=== PATIENT | female | born 1970 | race Caucasian/White ===

== ENCOUNTER → 2017-10-09 | Emergency (ER) | payer OTHER ==
[~2017-10-09] MED LIST: SOD CHLORIDE 0.9% 1,000 ML IV
[2017-10-09] MEDS: FAMOTIDINE 20 MG INJ IV (13:47)
[2017-10-09] MEDS: ONDANSETRON 4 MG INJ IV (13:47)
[2017-10-09] MEDS: morphine 4 MG/ML VIAL IV (13:47)
[2017-10-09 13:50] LABS: ADD MAN DIFF? NO
[2017-10-09 13:56] LABS: WHITE BLOOD COUNT 7.2 10^3/ul (4.8-10.8)
[2017-10-09 13:56] LABS: BASOPHIL # 0.1 10^3/ul (0.0-0.1); BASOPHILS % 0.8 % (0.0-2.0); EOSINOPHILS # 0.2 10^3/ul (0.0-0.5); EOSINOPHILS % 2.8 % (0.0-7.0); HEMATOCRIT 34.2 % (37.0-47.0); LYMPHOCYTES # 3.3 10^3/ul (0.8-2.9); LYMPHOCYTES % 45.7 % (15.0-51.0); MEAN CORPUSCULAR HEMOGLOBIN 26.7 pg (29.0-33.0); MEAN CORPUSCULAR HGB CONC 32.2 g/dl (32.0-37.0); MEAN PLATELET VOLUME 9.7 fl (7.4-10.4); MONOCYTE # 0.4 10^3/ul (0.3-0.9); MONOCYTES % 5.4 % (0.0-11.0); NEUTROPHIL # 3.2 10^3/ul (1.6-7.5); NEUTROPHILS % 44.6 % (39.0-77.0); PLATELET COUNT 354 10^3/UL (140-415); RED BLOOD COUNT 4.12 10^6/ul (4.20-5.40); RED CELL DISTRIBUTION WIDTH 14.1 % (11.5-14.5)
[2017-10-09 13:59] LABS: ADD UMIC YES; UR ASCORBIC ACID NEGATIVE (NEGATIVE); UR BILIRUBIN (Dip) NEGATIVE (NEGATIVE); UR BLOOD (Dip) 2+ mg/dL (NEGATIVE); UR CLARITY SLIGHTLY CLOUDY (CLEAR); UR COLOR YELLOW (YELLOW); UR GLUCOSE (Dip) NEGATIVE (NEGATIVE); UR KETONES (Dip) TRACE mg/dL (NEGATIVE); UR LEUKOCYTE ESTERASE (Dip) 3+ Leu/ul (NEGATIVE); UR MUCUS FEW /HPF (NONE SEEN); UR NITRITE (Dip) NEGATIVE (NEGATIVE); UR RBC 11 /HPF (0-5); UR SPECIFIC GRAVITY (Dip) 1.019 (1.003-1.030); UR SQUAMOUS EPITHELIAL CELL FEW /HPF (FEW); UR TOTAL PROTEIN (Dip) NEGATIVE (NEGATIVE); UR UROBILINOGEN (Dip) NEGATIVE (NEGATIVE); UR WBC 26 /HPF (0-5)
[2017-10-09 14:14] LABS: ALANINE AMINOTRANSFERASE 74 IU/L (13-69); ALBUMIN 4.1 g/dl (3.3-4.9); ALKALINE PHOSPHATASE 94 IU/L (42-121); ANION GAP 16 (8-16); ASPARTATE AMINO TRANSFERASE 108 IU/L (15-46); BLOOD UREA NITROGEN 18 mg/dl (7-20); CALCIUM 9.9 mg/dl (8.4-10.2); CARBON DIOXIDE 26 mmol/L (21-31); CHLORIDE 103 mmol/L (97-110); CREATININE 0.78 mg/dl (0.44-1.00); GLUCOSE 174 mg/dl (70-220); LIPASE 75 U/L (23-300); POTASSIUM 4.1 mmol/L (3.5-5.1); SODIUM 141 mmol/L (135-144); TOTAL PROTEIN 7.8 g/dl (6.1-8.1)
[2017-10-09] MEDS: LIDOCAINE/MYLANTA 40 ML BTL PO (15:53)
[2017-10-09] MEDS: HYDROmorphONE 1 MG/5 ML IV SYRINGE IV (15:53)
[2017-10-09] MEDS: METOCLOPRAMIDE 10 MG INJ IV (16:45)
== END | disposition home or self-care (01) ==
LOC: FTE 12:12
DX: N39.0 Urinary tract infection, site not specified (principal); R51 Headache; E10.9 Type 1 diabetes mellitus without complications; I10 Essential (primary) hypertension; Z79.84 Long term (current) use of oral hypoglycemic drugs
CPT/HCPCS: 36415; 76705; 80053; 81001; 81025; 83690; 85025; 96374; 96375; 99285-25

== ENCOUNTER 2018-01-04 23:48 | Emergency (ER) | payer OTHER | END 2018-01-05 03:33 | disposition home or self-care (01) | LOC: FTE 23:48 | DX: M25.562 Pain in left knee (principal); I10 Essential (primary) hypertension; E10.9 Type 1 diabetes mellitus without complications; Z79.84 Long term (current) use of oral hypoglycemic drugs | CPT/HCPCS: 29505; 73562; 99283-25 ==

== ENCOUNTER 2018-02-04 05:47 | Day surgery (SDC) | payer OTHER ==
[2018-02-04] MEDS ORDERED: MIDAZOLAM 1 MG/ML 2 ML INJ ×2 (07:53)
[2018-02-04] MEDS ORDERED: FENTAnyl 50 MCG/ML VIAL (07:53)
== END 2018-02-04 12:02 | disposition home or self-care (01) ==
LOC: GIL 05:47
DX: R19.4 Change in bowel habit (principal); K29.70 Gastritis, unspecified, without bleeding; E11.9 Type 2 diabetes mellitus without complications; I10 Essential (primary) hypertension; E78.5 Hyperlipidemia, unspecified; Z79.84 Long term (current) use of oral hypoglycemic drugs
CPT/HCPCS: 43239; 84703; 88305; 88312

== ENCOUNTER 2018-03-04 12:08 | Day surgery (SDC) | payer OTHER ==
[2018-03-04] MEDS ORDERED: FENTAnyl 50 MCG/ML VIAL (14:08)
[2018-03-04] MEDS ORDERED: MIDAZOLAM 1 MG/ML 2 ML INJ ×2 (14:08)
== END 2018-03-04 15:08 | disposition home or self-care (01) ==
LOC: GIL 12:08
DX: Z12.11 Encounter for screening for malignant neoplasm of colon (principal); K64.8 Other hemorrhoids; I10 Essential (primary) hypertension; E11.9 Type 2 diabetes mellitus without complications
CPT/HCPCS: 45378; 84703

== ENCOUNTER 2018-11-04 10:39 | Emergency (ER) | payer OTHER | END 2018-11-04 13:46 | disposition left against medical advice (07) | LOC: FTE 10:39 | DX: I87.2 Venous insufficiency (chronic) (peripheral) (principal); I10 Essential (primary) hypertension | CPT/HCPCS: 73630; 73630-LT; 81025; 93005; 93971; 99285-25 ==

== ENCOUNTER 2019-01-08 23:17 | Emergency (ER) | payer OTHER ==
[2019-01-09 02:51] LABS: ADD MAN DIFF? NO
[2019-01-09 02:54] LABS: BASOPHILS % 0.5 % (0.0-2.0); EOSINOPHILS # 0.2 10^3/ul (0.0-0.5); EOSINOPHILS % 4.1 % (0.0-7.0); HEMATOCRIT 33.2 % (37.0-47.0); HEMOGLOBIN 10.5 g/dl (12.0-16.0); LYMPHOCYTES # 3.2 10^3/ul (0.8-2.9); MEAN CORPUSCULAR HEMOGLOBIN 26.3 pg (29.0-33.0); MEAN CORPUSCULAR HGB CONC 31.6 g/dl (32.0-37.0); MEAN CORPUSCULAR VOLUME 83.2 fl (82.0-101.0); MEAN PLATELET VOLUME 10.4 fl (7.4-10.4); MONOCYTE # 0.3 10^3/ul (0.3-0.9); MONOCYTES % 5.6 % (0.0-11.0); NEUTROPHIL # 2.1 10^3/ul (1.6-7.5); NEUTROPHILS % 35.5 % (39.0-77.0); PLATELET COUNT 421 10^3/UL (140-415); RED BLOOD COUNT 3.99 10^6/ul (4.20-5.40); RED CELL DISTRIBUTION WIDTH 14.3 % (11.5-14.5)
[2019-01-09 02:54] LABS: WHITE BLOOD COUNT 5.9 10^3/ul (4.8-10.8)
[2019-01-09 03:11] LABS: INR 0.81; PROTIME 11.3 Sec (11.9-14.9); PT RATIO 0.9
[2019-01-09 03:12] LABS: PARTIAL THROMBOPLASTIN TIME 25.4 Sec (23.0-35.0)
[2019-01-09] MEDS: HYDROCODONE/APAP (10/325) TAB PO (03:17)
[2019-01-09] MEDS: MECLIZINE 12.5 MG TAB PO (03:17)
[2019-01-09] MEDS: ONDANSETRON (ODT) 4 MG TAB ODT (03:17)
[2019-01-09 03:18] LABS: ANION GAP 12 (5-13); BLOOD UREA NITROGEN 17 mg/dl (7-20); CALCIUM 10.3 mg/dl (8.4-10.2); CARBON DIOXIDE 22 mmol/L (21-31); CHLORIDE 105 mmol/L (97-110); CREATININE 1.01 mg/dl (0.44-1.00); Estimated GFR 59 mL/min (>60); GLUCOSE 319 mg/dl (70-220); POTASSIUM 4.7 mmol/L (3.5-5.1); SODIUM 139 mmol/L (135-144)
== END 2019-01-09 04:15 | disposition home or self-care (01) ==
LOC: E/R 23:17
DX: J32.9 Chronic sinusitis, unspecified (principal); D64.9 Anemia, unspecified; I10 Essential (primary) hypertension; E11.9 Type 2 diabetes mellitus without complications; Z79.84 Long term (current) use of oral hypoglycemic drugs
CPT/HCPCS: 36415; 70450; 80048; 81025; 84702; 85025; 85610; 85730; 93005; 99285-25